=== PATIENT | female | born 1930 | race Asian ===

== ENCOUNTER 2016-11-09 08:29 | Outpatient (CLI) | payer OTHER ==
[~2016-11-09] VITALS: Ht 162.6 cm; Wt 74.4 kg
[~2016-11-09 08:29] MED LIST: ASA LOW STR81 MG PO; LOTENSIN HCT1 TA1 PO; MELOXICAM7.5 MG PO; PAXIL10 MG PO; SIMV20TA2 PO
[2016-11-09 09:37] VITALS: BP 145/85; TEMP 98.8
== END 2016-11-09 09:25 | disposition home or self-care (01) ==
LOC: INF 08:29
DX: M81.0 Age-related osteoporosis without current pathological fracture (principal)
CPT/HCPCS: 36415; 82310; 96372; J0897

== ENCOUNTER 2016-12-02 08:32 | Outpatient (CLI) | payer OTHER ==
[2016-12-02 09:29] LABS: PLATELET COUNT 267 K/uL (152-353)
[2016-12-02 10:02] LABS: POTASSIUM 3.4 mmol/L (3.6-5.2); SODIUM 142 mmol/L (136-145)
== END 2016-12-02 19:26 | disposition home or self-care (01) ==
LOC: LABW 08:32
PROVIDERS: Internal Medicine
DX: I10 Essential (primary) hypertension (principal)
CPT/HCPCS: 36415; 80053; 80061; 81000; 84443; 85027

== ENCOUNTER 2017-05-30 09:51 | Outpatient (CLI) | payer OTHER ==
[~2017-05-30] VITALS: Ht 162.6 cm; Wt 79.8 kg
[2017-05-30 11:05] VITALS: BP 137/69; TEMP 98.8
== END 2017-05-30 11:08 | disposition home or self-care (01) ==
LOC: INF 09:51
DX: M81.0 Age-related osteoporosis without current pathological fracture (principal)
CPT/HCPCS: 36415; 82310; 96372; J0897

== ENCOUNTER 2017-10-10 10:14 | Outpatient (CLI) | payer OTHER ==
[2017-10-10 10:51] LABS: PLATELET COUNT 298 K/uL (152-353)
[2017-10-10 11:28] LABS: POTASSIUM 3.4 mmol/L (3.6-5.2)
== END 2017-10-10 20:01 | disposition home or self-care (01) ==
LOC: LABW 10:14
PROVIDERS: Internal Medicine
DX: I10 Essential (primary) hypertension (principal)
CPT/HCPCS: 36415; 80053; 80061; 81000; 84439; 84443; 85027

== ENCOUNTER 2017-12-21 09:32 | Outpatient (CLI) | payer OTHER ==
[~2017-12-21] VITALS: Ht 162.6 cm; Wt 76.2 kg
== END 2017-12-21 19:10 | disposition home or self-care (01) ==
LOC: INF 09:32
DX: M81.0 Age-related osteoporosis without current pathological fracture (principal)
CPT/HCPCS: 36415; 82310; 96372; J0897

== ENCOUNTER 2018-07-05 08:43 | Outpatient (CLI) | payer OTHER ==
[~2018-07-05] VITALS: Ht 162.6 cm; Wt 84.4 kg
[2018-07-05 09:10] VITALS: BP 173/83; TEMP 98.2
[2018-07-05 09:15] LABS: PLATELET COUNT 291 K/uL (152-353)
[2018-07-05 09:42] LABS: POTASSIUM 3.5 mmol/L (3.6-5.2)
== END 2018-07-05 19:08 | disposition home or self-care (01) ==
LOC: INF 08:43
DX: M81.0 Age-related osteoporosis without current pathological fracture (principal); I10 Essential (primary) hypertension; D64.9 Anemia, unspecified
CPT/HCPCS: 36415; 80053; 80061; 81000; 82306; 84439; 84443; 85027; 96372; J0897

== ENCOUNTER 2018-11-27 11:15 | Outpatient (CLI) | payer OTHER ==
[2018-11-27 12:42] LABS: POTASSIUM 3.5 mmol/L (3.6-5.2)
== END 2018-11-27 19:18 | disposition home or self-care (01) ==
LOC: LABW 11:15
PROVIDERS: Internal Medicine
DX: I10 Essential (primary) hypertension (principal); F41.1 Generalized anxiety disorder; E78.00 Pure hypercholesterolemia, unspecified; M81.0 Age-related osteoporosis without current pathological fracture
CPT/HCPCS: 36415; 80053; 80061; 81000; 82306; 84439; 84443

== ENCOUNTER 2019-07-05 09:04 | Outpatient (CLI) | payer OTHER ==
[~2019-07-05] VITALS: Ht 162.6 cm; Wt 75.7 kg
[2019-07-05 09:20] VITALS: BP 124/69; TEMP 97.9
== END 2019-07-05 10:20 | disposition home or self-care (01) ==
LOC: INF 09:04
DX: M81.0 Age-related osteoporosis without current pathological fracture (principal)
CPT/HCPCS: 36415; 82310; 96372; J0897